=== PATIENT | female | born 1965 | race Caucasian/White ===

== ENCOUNTER → 2017-11-20 | Outpatient (CLI) | payer BC, OTHER ==
[~2017-11-20] VITALS: Ht 165.1 cm; Wt 82.2 kg
[~2017-11-20] MED LIST: ADIPEX-P37.5 MG PO; CLONAZEPAM 0.50.5 M1 PO; EFFEXOR 5050 MG/1 T1 PO; HYDROCODONE-AP1 EAC6 PO; NABUMETONE 500500 M1 PO; NABUMETONE 750750 M1 PO; PROTONIX40 M1 PO; TOPAMAX 25 MG T25 M1 PO; TRAMADOL HCL50 MG PO
--- NOTE | ~2017-11-20 | HPC ---
[facility] [address] [place] [address] PAIN MANAGEMENT CONSULTATION Name: VNEUS SPARROW Room #: REG [facility]#: [id number] Admission: 11/20/17 Attend Phys: Ilan Grayson DO Discharge: Date of : 65 Report #: [id number] THIS REPORT FOR: //name// CC: Ilan Hair MD DATE OF SERVICE: 11/20/2017 REFERRING PHYSICIAN: Shailesh Hair MD CHIEF COMPLAINT: Right shoulder pain. HISTORY OF PRESENT ILLNESS: As you know, the patient is a 52-year-old female who returns today in followup visit with continued right shoulder pain. She places pain score at 8/10. She indicates pain is constant, aching and throbbing in sensation, exacerbated with raising her right arm and working throughout the day, injections, medications, ibuprofen, heat and cold compresses tend to improve pain. The patient has been advised to return today in followup visit to undergo a right intra-articular shoulder injection in hopes of improving pain. She was referred back to our clinic by her PCP to undergo this procedure. She denies any specific injury or trauma that may have led to progression of symptoms. ALLERGIES: No known drug allergies. CURRENT MEDICATIONS: Topiramate 25 mg once a day, nabumetone 750 mg twice a day, venlafaxine 50 mg 2 tabs p.o. daily, and pantoprazole 40 mg per day. SOCIAL HISTORY: The patient denies tobacco, alcohol, IV or illicit drug use. She is working, not receiving workmen's compensation. She is unaccompanied today. IMAGING: No new imaging available. PQRS: The patient does not have a history of osteoarthritis nor does she have diagnosis of rheumatoid arthritis. She is placing pain intensity at 8/10. She is not a fall risk. She has not had a fall in last 3 months. She does not use any type of device for ambulation. She is not on blood thinners. She does not carry the diagnosis of hypertension. She is on opioids and has been for greater than 6 weeks. There is no opioid contract with our services as she is not receiving these medications through our clinic. Risks assessment tool for opioid abuse low, functional assessment tool shows pain impact score of 35/70 indicating moderate interference of daily activities secondary to pain. PHYSICAL EXAMINATION: [facility] [address] [place] [address] PAIN MANAGEMENT CONSULTATION Name: VENUS SPARROW Room #: REG [facility]#: [id number] Admission: 11/20/17 Attend Phys: Ilan Grayson DO Discharge: Date of : 65 Report #: [id number] VITAL SIGNS: Blood pressure 126/73, pulse 65, respiratory rate 16 and unlabored, the patient is 98% on room air, height 5 feet 5 inches tall, weight is 181.2 pounds, and BMI calculated 30.2. GENERAL: Well-developed, well-nourished, well-hydrated 52-year-old female, appearing her stated age, placing current pain score at around 8/10. HEENT: Normocephalic, atraumatic. Pupils are equal, round, and reactive to light. Extraocular muscles are intact. Sclerae are nonicteric without injection. NEUROLOGIC: Cranial nerves 2-12 are grossly intact. Speech is fluent. EXTREMITIES: Show no clubbing, no cyanosis, and no edema. MUSCULOSKELETAL: The patient has palpatory tenderness over the right shoulder when compared to left. Deep palpation over the anterior and posterior portion of the shoulder causes intensification to pain. Active and passive range of motion of right shoulder is limited by pain and pain is generated with this maneuver. Muscle bulk and tone appears equal and symmetrical. ASSESSMENT: 1. Chronic right shoulder pain. 2. Chronic intractable pain. PLAN: 1. The patient has returned today in followup visit per the request of her primary care physician to undergo next in the series of the right intra-articular shoulder injections. The patient has received good benefit with previous injections, but has had a slow and progressive return of symptoms with changes in her work duties. 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 This has exacerbated the patient's right shoulder pain. She returns to undergo the intra-articular shoulder injection today. She has been advised the risks and benefits of the procedure, states understood and wished to proceed. 2. No medication changes were made at today's visit, the patient to continue current medical therapy as previously prescribed. 3. The patient to return to our clinic on an as needed basis for possible second in series of right intra-articular shoulder injections. We did discuss with the patient making changes in her work space to limit the use of the right shoulder when possible. I believe we were able to come up with some ideas that may help her on her daily activity, reducing the strain on the right shoulder by doing more work with her legs and less with her shoulders. PROCEDURE NOTE DESCRIPTION OF PROCEDURE: Right intra-articular shoulder injection under fluoroscopic guidance. After obtaining written consent, the patient was taken back to fluoroscopy suite, placed in a supine position. The image intensifier was then brought into [address] [address] PAIN MANAGEMENT CONSULTATION Name: VENUS SPARROW Room #: REG [facility]#: [id number] Admission: 11/20/17 Attend Phys: Ilan Grayson DO Discharge: Date of : 65 Report #: [id number] position over the right shoulder and imaging was obtained. We prepped and draped the right shoulder in aseptic fashion. A sterile marker was then placed over the injection site. A 27-gauge 1-1/4-inch needle was then used to anesthetize skin and subcutaneous tissue with 2 mL of 1% lidocaine. A 25-gauge 2-inch needle was advanced under fluoroscopic guidance towards the proximal head of the humerus. Needle was advanced until reaching the proximal head of the humerus, then retracted approximately 1 mm. After negative aspiration for heme, 0.5 mL of Omnipaque was injected demonstrating excellent shoulder arthrogram. After negative aspiration for heme, 3 mL of a solution containing 1 mL 40 mg per mL, 40 mg total triamcinolone, 2 mL bupivacaine 0.5% injected slowly. Needle retracted shelter, flushed with 1 mL of 1% lidocaine and removed. Sterile bandage placed over injection site. No new motor deficits present in the upper extremity following procedure. The patient tolerated the procedure well, carefully escorted to the recovery room in stable condition. No apparent complications. After meeting discharge criteria, the patient discharged home. <ELECTRONICALLY SIGNED> By: Ilan Grayson DO 12/03/17 [id number] [id number] Ilan Grayson DO /nt
[2017-11-20 08:41] VITALS: BP 126/73
== END | disposition home or self-care (01) ==
LOC: PAIN 07:02
DX: M25.511 Pain in right shoulder (principal); G89.29 Other chronic pain; Z68.30 Body mass index [BMI] 30.0-30.9, adult; Z79.899 Other long term (current) drug therapy

== ENCOUNTER → 2017-12-04 | Outpatient (CLI) | payer BC, OTHER ==
[2017-12-04 15:25] LABS: CALCIUM 9.4 mg/dL (8.5-10.1)
== END ==
LOC: LABMALL 14:50
PROVIDERS: Nurse Practitioner
DX: R10.32 Left lower quadrant pain (principal); R50.9 Fever, unspecified

== ENCOUNTER → 2019-06-04 | Outpatient (CLI) | payer BC, OTHER | LOC: CAT 11:00 | DX: M47.815 Spondylosis without myelopathy or radiculopathy, thoracolumbar region (principal); K76.89 Other specified diseases of liver; Z90.49 Acquired absence of other specified parts of digestive tract; Z90.710 Acquired absence of both cervix and uterus ==

== ENCOUNTER → 2020-07-29 | Outpatient (CLI) | payer BC, OTHER | LOC: MRI 12:16 | PROVIDERS: ATTEND Nurse Practitioner | DX: M51.17 Intervertebral disc disorders with radiculopathy, lumbosacral region (principal); M47.816 Spondylosis without myelopathy or radiculopathy, lumbar region; M47.817 Spondylosis without myelopathy or radiculopathy, lumbosacral region ==

== ENCOUNTER → 2021-10-20 | Outpatient (CLI) | payer BC, OTHER | LOC: RAD 11:34 | PROVIDERS: ATTEND Nurse Practitioner | DX: R07.81 Pleurodynia (principal); R91.1 Solitary pulmonary nodule ==